=== PATIENT | female | born 1955 | race Caucasian/White ===

== ENCOUNTER 2016-12-13 22:42 | Emergency (ER) | payer OTHER ==
[2016-12-13 22:49] VITALS: BP 174/80
[2016-12-13] MEDS ORDERED: METHYLPREDNISOLONE SOD SUCC/PF 125 MG/2 ML VIAL IM ONE (23:09)
--- NOTE | 2016-12-13 23:11 | ERNOTE ---
Date of Service: 12/13/16 Time Seen by Provider: 12/13/16 22:59 Stated Complaint: COLD Presenting Symptoms:: cough, sore throat, other - nasal congestion Source: patient Immunizations: IMMUNIZATION HX Immunizations Up to Date Yes History of Influenza Vaccine Yes Hx Pneumococcal Vaccination Yes Allergies/Adverse Reactions: Allergies Sulfa (Sulfonamide Antibiotics) Adverse Reaction (Verified 12/13/16 22:45) Home Medications: HOME MEDICATIONS Albuterol Sulfate [Ventolin Hfa] 1 puff IH Q6H 12/13/16 [Last Taken Unknown] Aspirin [Aspirin EC] 81 mg PO DAILY 12/13/16 [Last Taken Unknown] Atorvastatin Calcium [Lipitor] 40 mg PO HS 12/13/16 [Last Taken Unknown] Cholecalciferol (Vitamin D3) [Vitamin D3] 1,000 unit PO DAILY 12/13/16 [Last Taken Unknown] Citalopram Hydrobromide [Citalopram HBr] 40 mg PO DAILY 12/13/16 [Last Taken Unknown] Lisinopril [Prinivil] 10 mg PO BID 12/13/16 [Last Taken Unknown] Montelukast Sodium [Singulair] 10 mg PO DAILY 12/13/16 [Last Taken Unknown] metFORMIN HCL [Glucophage Xr] 500 mg PO DAILY 12/13/16 [Last Taken Unknown] - History of Present Ilness Narrative: This is a 61-year-old female who comes to the emergency department complaining of a stuffy nose as well as a sore throat which has been going on since . Symptoms seem to be gradually worsening. The patient came in this evening. She is not sure if she is going be able to go to work on Wednesday. She was hoping that she could get a shot of antibiotics and feel better in the morning. The patient says that she has started lose her voice today. She denies fever. She denies chest pain. She denies shortness of breath. She says she has to clear her throat frequently because it feels like something is caught in her throat. She is frustrated that her voice is going in and out. She is concerned that she might be contagious. The patient has no GI or complaints no rashes no sick contacts Review of Systems - Review of Systems Constitutional: Present: malaise EYE: Present: no symptoms reported ENT: Present: See HPI, ear pain, nose congestion, other Respiratory: Present: cough Cardiology: Present: no symptoms reported - sore throat Gastrointestinal/Abdominal: Present: no symptoms reported Genitourinary: Present: no symptoms reported Musculoskeletal: Present: no symptoms reported Skin: Present: no symptoms reported Neurological: Present: no symptoms reported Endocrine: Present: no symptoms reported Hematologic/Lymphatic: Present: no symptoms reported Psych: Present: no symptoms reported All Other Systems: All systems neg except as marked - Patient's Past Medical History Patient History - Medical: Diabetes Type 2, Depression Patient History - Cardiac/Respiratory: Asthma, Hypertension, Hyperlipidemia Patient History - Cancer: No Hx of Cancer Patient History - Surgical Procedures: Tubal Ligation, Other Patient History - Other: None - Social History Living Situations: home Abuse History: No History of abuse Psych History: Hx of Depression Smoking Status: Never smoker Alcohol Use: none Drug Use: none - Immunizations Immunizations Up to Date: Yes Hx Pneumococcal Vaccination: Yes History of Influenza Vaccine: Yes Physical Exam - Physical Exam General Appearance: Present: wd/wn, alert, no apparent distress Head Exam: Present: normal inspection, no evidence of injury Eye Exam: Normal inspection: bilateral, PERRL: bilateral, EOMI: bilateral Ears, Nose, Throat: Present: normal ENT inspection, other - patient has very mild pharyngeal erythema. There is no tonsillar exudate or hypertrophy. Bilateral tympanic membranes are pearly tejeda and normal in appearance. She has a few small anterior cervical nodes. Neck: Present: normal inspection, nontender Respiratory: Present: no respiratory distress, normal breath sounds, no accessory muscle use, lungs clear Cardiovascular/Chest: Present: regular rate, rhythm, no murmur, normal peripheral pulses Gastrointestinal/Abdominal: Present: normal bowel sounds, nontender, nondistended, soft Back Exam: Present: normal inspection, normal range of motion, no vertebral tenderness Extremity Exam: Present: normal inspection, no edema Neurological Exam: Present: alert, oriented, normal mood/affect, no motor/ sensory deficits Skin Exam: Present: normal color, warm/dry Lymphatic Exam: Present: no adenopathy ED Progress - Vital Signs Patient's Vital Signs:: I have reviewed the patient's vital signs. Vital Signs: Vital Signs 12/13/16 22:45 Temperature 36.8 C Pulse Rate 82 Respiratory 18 Rate Blood Pressure 174/80 O2 Sat by Pulse 96 Oximetry - Progress/Reassessment Chief Complaint: Upper Respiratory Symptoms Departure - Departure Clinical Impression: Upper respiratory infection Disposition: Home self-care Condition: Stable Instructions: Upper Respiratory Infection, Adult, [id number] Additional Instructions: As we have discussed, your symptoms are very suspicious for a viral infection which I have started to see going around. There 2 forms which seem to predominate. The first form people lose her voice on the first or second day and rapidly regained her voice. This one typically lasts for 5-6 days. The second type is associated with a delayed loss of voice and the symptoms may present may be present for several weeks. There is no specific treatment to help her body fight this off. It is a viral infection and no antibiotics will help. He can try anything which she thinks will help with symptoms. I would recommend that you try Sudafed as well as Amy or Benadryl to help with the congestion and ear discomfort. Salt water gargles are okay. Get plenty of sleep and drink plenty of fluids. Deciding to go to work is going to be completely up to you. If he don't feel like he can go then you should not go. I've written a note for you to be off of work. The steroids I have given to you may start working in 12 hours. Feel a bit better. There is no guarantee to this. Return if you develop new or concerning symptoms. I'll up with her family doctor. Referrals: Omid Murray MD [Primary Care Provider] -
[2016-12-13] MEDS ORDERED: METHYLPREDNISOLONE SOD SUCC/PF 125 MG/2 ML VIAL ONE (23:12)
== END 2016-12-13 23:15 | disposition home or self-care (01) ==
LOC: ER 22:42
DX: J06.9 Acute upper respiratory infection, unspecified (principal); E11.9 Type 2 diabetes mellitus without complications; E78.5 Hyperlipidemia, unspecified; I10 Essential (primary) hypertension; J45.909 Unspecified asthma, uncomplicated

== ENCOUNTER 2017-12-16 13:19 | Inpatient (IN) | payer OTHER ==
[2017-12-16] MEDS: FUROSEMIDE 10 MG/ML VIAL IV SCH (16:12)
[2017-12-16] MEDS: ENOXAPARIN SODIUM 40 MG/0.4 ML SYRG SC SCH (16:12)
[2017-12-16 16:28] LABS: T4 Free * 1.09 ng/dL (0.76-1.46); TSH * 0.823 uIU/mL (0.358-3.74)
--- NOTE | 2017-12-16 20:22 | HP ---
Chief Complaint - Chief Complaint Date of Service: 12/16/17 Time of Service: 16:20 Chief Complaint: Shortness of breath History of Present Illness: The patient complains of shortness of breath that started 2 weeks ago and has progressively worsened. She states she will become winded and quite short of breath walking short distances or doing normal activities that she used to never have any issues doing before 2 weeks ago. She denies any specific trigger or anything out of her normal usual day to day activities that occurred around the time she first noticed she was short of breath 2 weeks ago. She states she feels like she has stuff to cough up but she is unable to get anything up. She denies any other symptoms other than the cough and shortness of breath and feeling a bit bloated and sore in her upper mid abdomen which is possible related to muscle soreness from cough. She denies any nausea or vomiting, denies any abdominal pain, denies any significant change in BMs - no diarrhea and no constipation. She denies any fevers or chills. She denies any chest pain or LE edema. She does states she has probably gained about 10 pounds over the past month and a half but she figured it was just diet related. She denies any recent increase in salt intake. She states she thought she was getting an asthma flare which she does get seasonally in the Spring and the Fall. She was seen in the ED on 12/14/2017 and was diagnosed with an asthma exacerbation and was given steroids while in the ED and then discharged home on nebs, azithromycin and prednisone. She continued to feel short of breath so she called my office today and she was seen this AM around 10:30. At that time, she was visibly short of breath and had conversational dyspnea. Her oxygen saturations were on the lower end at 93% and she has no known underlying cardiac issues. She does have ABEBE but is 100% compliant with using her CPAP. She has asthma that sometimes flares seasonally but is usually fairly well controlled as she has only been on albuterol inhaler and nebs PRN. On exam in the clinic, there were no crackles or rhonchi. Her lung sounds were diminished bases>apices. The patient did NOT have any audible wheezes. Her clinically picture just did not completely fit with an asthma exacerbation so bloodwork was ordered including a procalcitonin which was unremarkable, CBC which showed at elevated WBC but the patient is on steroids so it is possible the bump is caused by the steroids and d-dimer markedly elevated so a CTA of the chest was ordered for further evaluation. The CT showed the patient has bilateral left> right pleural effusions with cardiomegaly and overall picture consisted with acute CHF and there was no evidence of PE. The patient has no history of CHF. Of note, when the patient was in the ED 2 days ago (12/14/17), she had a CXR completed which showed trace if any evidence of pleural effusions. The patient will be admitted for further evaluation and management of her new onset CHF and bilateral pleural effusions. Medical History (Last Reviewed 12/16/17 @ 11:27 by Apolonia Stinson) Asthma (Chronic) ADHD (Chronic) Rhinitis, allergic (Chronic) HTN (hypertension) (Chronic) Diabetes (Chronic) Surgical History: Surgical History (Last Reviewed 12/14/17 @ 09:39 by Alyx Sommers RN) Cataract H/O tubal ligation Retinal tear of both eyes S/P cervical disc replacement Family History: Family History (Last Reviewed 12/14/17 @ 09:39 by Alyx Sommers RN) Sister Cancer Father Heart disease Social History: Patient Lives/Resources With Spouse Utilized Occupation Internist Medical Doctor Md for [employer] Preferred Language Irish Do you have any mu-ism or No cultural preference? Smoking Status Never smoker Have you smoked in the past 12 No months Abuse History No History of abuse Psych History Hx of Depression Review Of Systems (GEN) - Review of Systems Generalized/Overall Review: Present: Weight gain. Absent: Chills, Fever, Diaphoresis EENTM: Present: No Symptoms Reported Respiratory: Present: Cough, Shortness of Breath Cardiac: Absent: Chest Pain, Edema, Palpitations, Syncope Abdominal: Absent: Nausea, Vomiting, Abdominal Pain, Constipation, Diarrhea Genitourinary: Present: No Symptoms Reported Musculoskeletal: Present: No Symptoms Reported Neurological: Absent: Headache Skin: Present: No Symptoms Reported Endocrine: Present: No Symptoms Reported Misc: All systems neg except as marked Immunizations: IMMUNIZATION HX Immunizations Up to Date Yes History of Influenza Vaccine Yes Hx Pneumococcal Vaccination Yes Allergies/Adverse Reactions: Allergies Allergy/AdvReac Type Severity Reaction Status Date / Time Sulfa (Sulfonamide AdvReac Hives Verified 12/16/17 11:26 Antibiotics) Home Medications: HOME MEDICATIONS Aspirin [Aspirin EC] 81 mg PO DAILY 12/13/16 [Last Taken 12/16/17] Atorvastatin Calcium [Lipitor] 40 mg PO HS 12/13/16 [Last Taken 12/15/17] Cholecalciferol (Vitamin D3) [Vitamin D3] 1,000 unit PO DAILY 12/13/16 [Last Taken 12/16/17] Citalopram Hydrobromide [Citalopram HBr] 40 mg PO DAILY 12/13/16 [Last Taken 09/27] Lisinopril [Prinivil] 10 mg PO BID 12/13/16 [Last Taken 12/16/17] Montelukast Sodium [Singulair] 10 mg PO DAILY 12/13/16 [Last Taken 12/16/17] metFORMIN HCL [Glucophage Xr] 500 mg PO DAILY 12/13/16 [Last Taken 12/16/17] albuterol sulfate HFA 90 mcg/actuation aerosol inhaler 1 puff IH Q6H #18 g 12/09 [Last Taken 12/16/17] dextroamphetamine-amphetamine ER 20 mg 24hr capsule,extend release 40 mg PO DAILY 30 Days #60 cap 12/10/17 [Last Taken 12/16/17] predniSONE [Deltasone] 20 mg PO BID #10 tab 12/14/17 [Last Taken 12/16/17 0900] albuterol sulfate 2.5 mg/3 mL (0.083 %) solution for nebulization 2.5 mg IH Q2H #180 ml 12/16/17 [Last Taken 12/16/17] azithromycin 500 mg tablet 500 mg PO DAILY 5 Days #5 tab 12/16/17 [Last Taken ] ipratropium-albuterol 0.5 mg-3 mg(2.5 mg base)/3 mL nebulization soln 3 ml IH Q4H #180 ml 12/16/17 [Last Taken 12/16/17] mometasone 110 mcg (30 doses) breath activated powder inhaler 2 inh IH BID #1 ea 12/16/17 [Last Taken 12/16/17] Exam - Exam Vital Signs: Vital Signs - Last Taken Temp 36.8 C 12/16/17 19:45 Pulse 78 12/16/17 19:45 Resp 18 12/16/17 19:45 BP 154/72 H 12/16/17 19:45 Pulse Ox 93 12/16/17 19:45 Constitutional: Present: Alert, Oriented x3, Cooperative, No distress, Looks Younger than stated age ENT Exam: Present: hearing grossly normal Eye Exam: bilateral eye: normal inspection, EOMI Respiratory: Present: other - Diminished lung sounds diffusely bases>apices, shallow breaths, conversational dyspnea. Absent: crackles, rales, rhonchi, stridor, wheezing Cardiovascular/Chest: Present: no edema, no murmur, other - normal rate, irregular rhythm Abdomen: Present: soft, nontender, nondistended. Absent: guarding, rigidity Extremity: Present: normal inspection, no pedal edema Skin Exam: Present: normal color, warm/dry Neurologic: Present: no motor/sensory deficits, alert, normal mood/affect, oriented x 3 Appearance: Present: appropriate appearance, appropriate insight, neat, no memory impairment Eye contact: Present: cooperative, good eye contact, normal speech Thoughts: Present: normal thought pattern, no apparent hallucination Diagnostic Studies: Laboratory Results Lipase 132 U/L (73-393) 12/16/17 Unknown TSH 0.823 uIU/mL (0.358-3.74) 12/16/17 Unknown Free T4 1.09 ng/dL (0.76-1.46) 12/16/17 Unknown Assessment/Plan - Narrative Narrative: It is unclear why the patient appears to be in acute CHF. She has no history of CHF and an uremarkable CXR with trace to no pleural effusions just 2 days ago. The patient denies any chest pain whatsoever and she has no visibly obvious edema. Admit patient to med-surg, inpatient status. EKG ordered. Monitor patient on telemetry. Check cardiac enzymes, TSH, free T3 and free T4, BNP. Complete 2D echocardiogram ordered. CXR in AM. We will plan to complete a diagnostic thoracentesis in the AM for further evaluation to help determine the cause of the new onset large bilateral pleural effusions. Supplemental oxygen with goal SpO2>92%. Give lasix 40mg IV. Monitor volume status closely. Strict I&Os. Daily standing weight. VTE ppx with Lovenox and SCDs. - Assessment/Plan (1) Acute CHF (congestive heart failure) Problem: Acute (2) Bilateral pleural effusion Problem: Acute (3) Elevated d-dimer Problem: Acute (4) Leukocytosis Problem: Acute (5) Asthma Problem: Chronic
[2017-12-16] MEDS ORDERED: ALBUTEROL SULFATE 2.5 MG/0.5 ML VIAL.NEB IH PRN (20:30)
[2017-12-16] MEDS ORDERED: ROSUVASTATIN CALCIUM 10 MG TABLET ONE (20:45)
[2017-12-16] MEDS: ASPIRIN 81 MG TABLET.DR PO SCH (20:59)
[2017-12-16] MEDS: MONTELUKAST SODIUM 10 MG TABLET PO SCH (20:59)
[2017-12-16] MEDS: LISINOPRIL 10 MG TABLET PO SCH (20:59)
[2017-12-16] MEDS: CITALOPRAM HYDROBROMIDE 20 MG TABLET PO SCH (21:01)
[2017-12-16] MEDS: ROSUVASTATIN CALCIUM 20 MG TABLET PO SCH (21:03)
[2017-12-16] MEDS: ALBUTEROL SULFATE/IPRATROPIUM 3 ML NEBU IH SCH ×2 (21:07→23:00)
[2017-12-16] MEDS: BUDESONIDE 0.5 MG/2 ML VIAL.NEB IH SCH (21:08)
[2017-12-17] MEDS: ALBUTEROL SULFATE/IPRATROPIUM 3 ML NEBU IH SCH ×7 (02:16→22:12)
[2017-12-17 05:19] LABS: Hematocrit 35.5 % (37.0-47.0); Hemoglobin 11.7 gm/dL (12.5-16.0); Mean Corpuscular Hemoglobin 29.3 pg (27-31); Mean Platelet Volume 9.3 fl (8-12.5); Neutrophil # 8.3 K/mm3 (1.3-6.0); Platelet Count 313 K/mm3 (150-450); Red Blood Count 3.99 M/mm3 (4.2-5.4); Red Cell Distribution Width 13.5 % (11.5-14.0); White Blood Count 12.2 K/mm3 (4.0-10.5)
[2017-12-17 05:27] LABS: Prothrombin Time (Patient) 10.6 Seconds (9.0-11.0)
[2017-12-17 05:30] LABS: INR 1.06 INR (0.90-1.10)
[2017-12-17 05:42] LABS: ALT 27 U/L (19-67); AST 19 U/L (0-48); Albumin * 3.2 gm/dl (3.4-5.0); Alkaline Phosphatase * 92 U/L (50-170); Anion Gap 11.2 mmol/L (6.8-13.8); BNP * 113 pg/mL (5-205); BUN/Creatinine Ratio 19.8 (9.0-21.6); Bilirubin Direct 0.1 mg/dL (0.0-0.3); Bilirubin, Total 0.3 mg/dL (0.0-1.1); Bilirubin,Indirect 0.2 mg/dL (0.1-0.7); Blood Urea Nitrogen 23 mg/dL (3-23); CK Total * 79 U/L (0-259); CKMB 0.5 ng/mL (0.0-9.0); Calcium * 9.2 mg/dL (7.9-10.9); Carbon Dioxide 28.4 mmol/L (24-32.6); Chloride 103 mmol/L (97-106); Chol/HDL Risk Ratio 2.9 mg/dL (3.3-4.4); Cholesterol 156 mg/dL (0-200); Glucose * 102 mg/dL (70-110); HDL Cholesterol 53 mg/dL (40-60); LDL Cholesterol 74 mg/dL (70-130); Potassium 3.6 mmol/L (3.4-4.6); Sodium 139 mmol/L (132-142); Total Protein 7.3 gm/dL (6.2-8.2); Triglycerides 144 mg/dL (30-200); Troponin I Less than 0.017 ng/mL (0.00-0.10); VLDL Cholesterol 29 mg/dL (5-40)
[2017-12-17] MEDS: BUDESONIDE 0.5 MG/2 ML VIAL.NEB IH SCH ×3 (06:07→18:16)
[2017-12-17] MEDS: LISINOPRIL 10 MG TABLET PO SCH ×2 (09:02→20:15)
[2017-12-17] MEDS: FUROSEMIDE 10 MG/ML VIAL IV SCH (10:18)
[2017-12-17] MEDS: DIATRIZOATE MEGLUMINE, SODIUM 30 ML BTL PO ONE ×2 (11:22→12:25)
[2017-12-17] MEDS: ENOXAPARIN SODIUM 40 MG/0.4 ML SYRG SC SCH (14:22)
[2017-12-17] MEDS: ACETAMINOPHEN 325 MG TABLET PO PRN (17:29)
[2017-12-17] MEDS: ASPIRIN 81 MG TABLET.DR PO SCH (20:14)
[2017-12-17] MEDS: ROSUVASTATIN CALCIUM 20 MG TABLET PO SCH (20:15)
[2017-12-17] MEDS: CITALOPRAM HYDROBROMIDE 20 MG TABLET PO SCH (20:15)
[2017-12-17] MEDS: MONTELUKAST SODIUM 10 MG TABLET PO SCH (20:15)
[2017-12-18] MEDS: ALBUTEROL SULFATE/IPRATROPIUM 3 ML NEBU IH SCH ×2 (02:08→06:05)
[2017-12-18] MEDS: BUDESONIDE 0.5 MG/2 ML VIAL.NEB IH SCH ×2 (06:05→18:04)
[2017-12-18] MEDS: LISINOPRIL 10 MG TABLET PO SCH ×2 (08:58→20:07)
[2017-12-18] MEDS ORDERED: FUROSEMIDE 10 MG/ML VIAL IV ONE (09:56)
[2017-12-18] MEDS ORDERED: ALBUTEROL SULFATE/IPRATROPIUM 3 ML NEBU IH PRN (10:02)
[2017-12-18] MEDS: ACETAMINOPHEN 325 MG TABLET PO PRN (11:44)
[2017-12-18 12:12] LABS: Albumin * 2.8 gm/dl (3.4-5.0); Total Protein 5.5 gm/dL (6.2-8.2)
[2017-12-18 12:18] LABS: Body Fluid WBC 762 /uL (0-1000)
[2017-12-18 12:46] LABS: Body Fluid Appearance SLIGHTLY CLOUDY (CLEAR); Body Fluid Color YELLOW (COLORLESS)
[2017-12-18] MEDS: ENOXAPARIN SODIUM 40 MG/0.4 ML SYRG SC SCH (15:24)
[2017-12-18] MEDS: CITALOPRAM HYDROBROMIDE 20 MG TABLET PO SCH (20:05)
[2017-12-18] MEDS: MONTELUKAST SODIUM 10 MG TABLET PO SCH (20:05)
[2017-12-18] MEDS: ROSUVASTATIN CALCIUM 20 MG TABLET PO SCH (20:06)
[2017-12-18] MEDS: ASPIRIN 81 MG TABLET.DR PO SCH (20:06)
[2017-12-19] MEDS: BUDESONIDE 0.5 MG/2 ML VIAL.NEB IH SCH ×2 (06:05→18:16)
[2017-12-19] MEDS ORDERED: FUROSEMIDE 10 MG/ML VIAL IV ONE (08:41)
[2017-12-19] MEDS ORDERED: SPIRONOLACTONE 25 MG TABLET PO ONE (08:42)
[2017-12-19 08:49] LABS: Hematocrit 40.1 % (37.0-47.0); Hemoglobin 13.2 gm/dL (12.5-16.0); Mean Cell Volume 88.7 fl (78-100); Mean Corpuscular Hemoglobin 29.2 pg (27-31); Mean Corpuscular Hgb Conc 32.9 g/dl (32-36); Mean Platelet Volume 9.2 fl (8-12.5); Platelet Count 372 K/mm3 (150-450); Red Blood Count 4.52 M/mm3 (4.2-5.4); Red Cell Distribution Width 13.4 % (11.5-14.0); White Blood Count 12.8 K/mm3 (4.0-10.5)
[2017-12-19 08:53] LABS: Anion Gap 13.5 mmol/L (6.8-13.8); BUN/Creatinine Ratio 21.4 (9.0-21.6); Calcium * 8.7 mg/dL (7.9-10.9); Carbon Dioxide 25.1 mmol/L (24-32.6); Estimated Creat Clear 43.6; Potassium 3.6 mmol/L (3.4-4.6)
[2017-12-19] MEDS: ACETAMINOPHEN 325 MG TABLET PO PRN ×2 (09:39→18:49)
[2017-12-19] MEDS: LISINOPRIL 10 MG TABLET PO SCH ×2 (09:41→20:22)
[2017-12-19] MEDS: ENOXAPARIN SODIUM 40 MG/0.4 ML SYRG SC SCH (15:13)
[2017-12-19] MEDS: ROSUVASTATIN CALCIUM 20 MG TABLET PO SCH (20:21)
[2017-12-19] MEDS: CITALOPRAM HYDROBROMIDE 20 MG TABLET PO SCH (20:21)
[2017-12-19] MEDS: MONTELUKAST SODIUM 10 MG TABLET PO SCH (20:22)
[2017-12-19] MEDS: ASPIRIN 81 MG TABLET.DR PO SCH (20:22)
[2017-12-20] MEDS: BUDESONIDE 0.5 MG/2 ML VIAL.NEB IH SCH (06:09)
[2017-12-20] MEDS: LISINOPRIL 10 MG TABLET PO SCH (08:12)
--- NOTE | 2017-12-20 09:58 | DS ---
(1) Acute CHF (congestive heart failure) Problem: Ruled-out (2) Bilateral pleural effusion Problem: Acute (3) Elevated d-dimer Problem: Acute (4) Leukocytosis Problem: Acute (5) Asthma Problem: Chronic (6) Carcinomatosis Problem: Suspected (7) Ascites Problem: Acute (8) Colonic mass Problem: Acute Description of Stay: ADMISSION DATE: 12/16/2017 DISCHARGE DATE: 12/20/2017 ADMISSION HPI: The patient complains of shortness of breath that started 2 weeks ago and has progressively worsened. She states she will become winded and quite short of breath walking short distances or doing normal activities that she used to never have any issues doing before 2 weeks ago. She denies any specific trigger or anything out of her normal usual day to day activities that occurred around the time she first noticed she was short of breath 2 weeks ago. She states she feels like she has stuff to cough up but she is unable to get anything up. She denies any other symptoms other than the cough and shortness of breath and feeling a bit bloated and sore in her upper mid abdomen which is possible related to muscle soreness from cough. She denies any nausea or vomiting, denies any abdominal pain, denies any significant change in BMs - no diarrhea and no constipation. She denies any fevers or chills. She denies any chest pain or LE edema. She does states she has probably gained about 10 pounds over the past month and a half but she figured it was just diet related. She denies any recent increase in salt intake. She states she thought she was getting an asthma flare which she does get seasonally in the Spring and the Fall. She was seen in the ED on 12/14/2017 and was diagnosed with an asthma exacerbation and was given steroids while in the ED and then discharged home on nebs, azithromycin and prednisone. She continued to feel short of breath so she called my office today and she was seen this AM around 10:30. At that time, she was visibly short of breath and had conversational dyspnea. Her oxygen saturations were on the lower end at 93% and she has no known underlying cardiac issues. She does have ABEBE but is 100% compliant with using her CPAP. She has asthma that sometimes flares seasonally but is usually fairly well controlled as she has only been on albuterol inhaler and nebs PRN. On exam in the clinic, there were no crackles or rhonchi. Her lung sounds were diminished bases>apices. The patient did NOT have any audible wheezes. Her clinically picture just did not completely fit with an asthma exacerbation so bloodwork was ordered including a procalcitonin which was unremarkable, CBC which showed at elevated WBC but the patient is on steroids so it is possible the bump is caused by the steroids and d-dimer markedly elevated so a CTA of the chest was ordered for further evaluation. The CT showed the patient has bilateral left> right pleural effusions with cardiomegaly and overall picture consisted with acute CHF and there was no evidence of PE. The patient has no history of CHF. Of note, when the patient was in the ED 2 days ago (12/14/17), she had a CXR completed which showed trace if any evidence of pleural effusions. The patient will be admitted for further evaluation and management of her new onset CHF and bilateral pleural effusions. HOSPITAL COURSE: The patient was admitted with what appeared to be acute onset CHF on imaging but this diagnosis did not completely fit the patients presentation as the patient does not have any lower extremity edema on exam and her laboratory values do not completely fit with the diagnosis of CHF either. She had an echocardiogram completed the following morning after admission and during the exam, the tech noted the patient had ascites. Given this new finding of ascites , I was concerned that the patient's new onset pleural effusions were malignant in etiology and possibly secondary to an intra-abdominal source. A CT of the abdomen and pelvis with IV and oral contrast was completed and showed a possible lesion/neoplasm in the transverse colon as well as nodularity of the greater omentum and transverse mesocolon possibly representing peritoneal metastases. This information markedly raised my concern for an intra-abdominal malignant process causing the ascites and pleural effusions. The patient underwent a diagnostic paracentesis during her admission and the ascitic fluid was sent for fluid analysis including cytology. Ascitic fluid analysis revealed SAAG is <1.1 so the patient's ascites is NOT secondary to portal hypertension. Fluid analysis was also not consistent with infection. Given all the possible etiologies of non-portal hypertension related ascites, the patient's presentation and imaging is most consistent with peritoneal carcinomatosis of unknown primary. Cytology results were pending at the time of discharge. Of note, the patient has never been a smoker and has no significant alcohol use. She is up to date on her mammogram and she states she is only 1 year late on her colonoscopy. She had a colonoscopy for screening when she turned 51 and has not had another since that time. She states the colonoscopy 11 years ago was fine, there were no polyps and she was told everything looked normal and to repeat a screening colonoscopy in 10 years. FOLLOW-UP APPOINTMENTS: -PET scan on , 12/23/2017. [facility] scheduling will call you with time. -Follow-up with Dr. Collier on 12/24/2017 @ 0845 AM -Check BMP at follow-up visit NEW OR CHANGED MEDICATIONS: -Lasix 40mg PO daily -Spironolactone 25mg PO daily DISCONTINUED MEDICATIONS: -None RADIOLOGY REPORTS: CTA of the chest on 12/16/2017: 1. No evidence for pulmonary embolism. 2. Large bilateral pleural effusions with evidence of acute CHF exacerbation. PA and lateral CXR on 12/17/2017: Increasing size of a moderate left-sided pleural effusion with associated compressive atelectasis. CT abdomen and pelvis with IV and oral contrast on 12/17/2017: 1. Nonspecific mild to moderate ascites as discussed above. 2. Possible area of linear stranding and nodularity of the greater omentum and the transverse mesocolon. Consider potential peritoneal metastases. 3. Possible nonobstructing transverse colonic lesion. Consider neoplasm. 4. Fatty liver. 5. Nonspecific small bowel mesenteric vascular congestion. Procedures Performed: see notes below List Procedures: DATE AND TIME OF PROCEDURE: 12/18/2017 @ 1105 PRE-PROCEDURE DIAGNOSIS: Ascites POST-PROCEDURE DIAGNOSIS: Same PROCEDURE: Ultrasound-guided Diagnostic Paracentesis PERFORMING PHYSICIAN: Cris Collier DO MEDICATIONS: 3cc 1% Lidocaine PROCEDURE: Consent was obtained prior to the procedure. Ultrasound guidance was used to locate and gabriel an ascitic pocket on the left. A timeout was performed prior to initiating the procedure. The area was prepared and draped in the usual sterile fashion. The site was anesthetized with 3cc of 1% lidocaine. A standard paracentesis kit needle was introduced into the peritoneal cavity and 15cc of bloody fluid (resembled grapefruit juice) was removed and sent for analysis. The patient tolerated the procedure well without any immediately apparent difficulties or complications. COMPLICATIONS: None BLOOD LOSS: Minimal FLUID ANALYSIS: Cytology, gram stain and culture, cell count, total protein, albumin, CEA Results and Findings: Lab Pending Results 12/16/17 15:31: Free T3 2.5 12/16/17 : Lipase 132, TSH 0.823, Free T4 1.09 12/17/17 05:17: WBC 12.2 H D, RBC 3.99 L, Hgb 11.7 L, Hct 35.5 L, MCV 89.0, MCH 29.3, MCHC 33.0, RDW 13.5, Plt Count 313, MPV 9.3, Immature Gran % (Auto) 0.60 H , Immature Gran # (Auto) 0.07 H, Neutrophils % 68.0, Lymphocytes % 23.0, Monocytes % 7.7, Eosinophils % 0.2, Basophils % 0.5, Nucleated RBC % 0.0, Neutrophils # 8.3 H, Lymphocytes # 2.80, Monocytes # 0.9, Eosinophils # 0.0, Absolute Basophils 0.1 12/17/17 05:17: PT 10.6, INR (Anticoag Therapy) 1.06 12/17/17 05:17: Sodium 139, Plasma Sodium 139, Potassium 3.6, Chloride 103, Carbon Dioxide 28.4, Anion Gap 11.2, BUN 23, Creatinine 1.16, Est GFR (Non-Af Amer) 50 L, BUN/Creatinine Ratio 19.8, Random Glucose 102, Calcium 9.2, Total Bilirubin 0.3, Direct Bilirubin 0.1, Indirect Bilirubin 0.2, AST 19, ALT 27, Alkaline Phosphatase 92, Creatine Kinase 79, CK-MB (CK-2) 0.5, CK-MB (CK-2) Rel Index 0.6, Troponin I Less than 0.017, B-Natriuretic Peptide 113, Total Protein 7.3, Albumin 3.2 L, Triglycerides 144, Cholesterol 156, LDL Cholesterol 74, VLDL Cholesterol 29, HDL Cholesterol 53, Cholesterol/HDL Ratio 2.9 L 12/18/17 11:25: Total Protein 5.5 L, Albumin 2.8 L 12/18/17 11:25: Fluid Color Yellow, Fluid Appearance Slightly cloudy, Fluid WBC 762, Fluid RBC Greater than 1000.0 H, Fluid Neutrophils 10, Fluid Lymphocytes 85 , Fluid Monocytes 2, Fluid Other Cells 3 12/18/17 11:25: Miscellaneous Cytology Spec. sent to path. 12/18/17 11:58: Albumin 3.1 L 12/19/17 08:42: WBC 12.8 H, RBC 4.52, Hgb 13.2, Hct 40.1, MCV 88.7, MCH 29.2, MCHC 32.9, RDW 13.4, Plt Count 372, MPV 9.2 12/19/17 08:42: Sodium 135, Plasma Sodium 136, Potassium 3.6, Chloride 100, Carbon Dioxide 25.1, Anion Gap 13.5, BUN 25 H, Creatinine 1.17, Est GFR (Non-Af Amer) 50 L, BUN/Creatinine Ratio 21.4, Random Glucose 150 H D, Calcium 8.7 Discharge Location: Home Disposition: Home self-care Condition: Stable Discharge Activity: Activity as tolerated Discharge Diet: Low salt Referrals: Cris Collier DO [Primary Care Provider] - Problem Oriented Discharge Instructions to Patient/Family: Heart Failure, Easy- to-Read Additional Patient Instructions (free text): -PET scan on , 12/23/2017 [facility] scheduling will call you with time. -Follow-up with Dr. Collier on 12/24/2017 @ 0845 AM -Check BMP at follow-up visit Prescriptions (Any new or edited meds): Furosemide [Lasix] 40 mg PO DAILY #30 tab Spironolactone 25 mg PO DAILY #30 tab Complete Home Medications List: Complete Home Medication List: Aspirin [Aspirin EC] 81 mg PO DAILY 12/13/16 Atorvastatin Calcium [Lipitor] 40 mg PO HS 12/13/16 Cholecalciferol (Vitamin D3) [Vitamin D3] 1,000 unit PO DAILY 12/13/16 Citalopram Hydrobromide [Citalopram HBr] 40 mg PO DAILY 12/13/16 Lisinopril [Prinivil] 10 mg PO BID 12/13/16 Montelukast Sodium [Singulair] 10 mg PO DAILY 12/13/16 metFORMIN HCL [Glucophage Xr] 500 mg PO DAILY 12/13/16 albuterol sulfate HFA 90 mcg/actuation aerosol inhaler 1 puff IH Q6H #18 g 12/09 dextroamphetamine-amphetamine ER 20 mg 24hr capsule,extend release 40 mg PO DAILY 30 Days #60 cap 08/31/18 albuterol sulfate 2.5 mg/3 mL (0.083 %) solution for nebulization 2.5 mg IH Q2H #180 ml 12/16/17 ipratropium-albuterol 0.5 mg-3 mg(2.5 mg base)/3 mL nebulization soln 3 ml IH Q4H #180 ml 12/16/17 mometasone 110 mcg (30 doses) breath activated powder inhaler 2 inh IH BID #1 ea 12/16/17 Furosemide [Lasix] 40 mg PO DAILY #30 tab 12/20/17 Spironolactone 25 mg PO DAILY #30 tab 12/20/17 Amb Orders for Discharge: Basic Metabolic Panel Time Frame: 12/24/17, Location: Laboratory PET/CT Wholebody Time Frame: 12/23/17, Location: Radiology
[2017-12-20 10:52] VITALS: BP 133/91
--- NOTE | 2017-12-20 13:46 | ECHO ---
This report is available in the EMR
--- NOTE | 2017-12-20 14:39 | PROC NOTE ---
ED Procedures - Additional Procedures Progress: DATE AND TIME OF PROCEDURE: 12/18/2017 @ 1105 PRE-PROCEDURE DIAGNOSIS: Ascites POST-PROCEDURE DIAGNOSIS: Same PROCEDURE: Ultrasound-guided Diagnostic Paracentesis PERFORMING PHYSICIAN: Cris Collier DO MEDICATIONS: 3cc 1% Lidocaine PROCEDURE: Consent was obtained prior to the procedure. Ultrasound guidance was used to locate and gabriel an ascitic pocket on the left. A timeout was performed prior to initiating the procedure. The area was prepared and draped in the usual sterile fashion. The site was anesthetized with 3cc of 1% lidocaine. A standard paracentesis kit needle was introduced into the peritoneal cavity and 15cc of bloody fluid (resembled grapefruit juice) was removed and sent for analysis. The patient tolerated the procedure well without any immediately apparent difficulties or complications. COMPLICATIONS: None BLOOD LOSS: Minimal FLUID ANALYSIS: Cytology, gram stain and culture, cell count, total protein, albumin, CEA
--- NOTE | 2017-12-20 14:52 | PN ---
Subjective - Date and Time Seen Date: 12/17/17 Time: 10:45 Subjective Narrative: Patient seen and examined at bedside. No acute issues overnight. Patient continues to be short of breath but otherwise denies any new issues or concerns. Objective - Review of Systems Respiratory: Reports: Shortness of Breath Misc: All systems neg except as marked - Vitals Vitals: Last Vital Signs Temp 36.7 C 12/20/17 10:50 Pulse 87 12/20/17 10:50 Resp 20 12/20/17 10:50 BP 133/91 H 12/20/17 10:50 Pulse Ox 93 12/20/17 10:50 - Exam Constitutional: Present: Alert, Oriented x3, Cooperative, Well developed, Well nourished, No distress, Looks Younger than stated age ENT Exam: Present: hearing grossly normal, moist mucous membranes Respiratory: Present: no respiratory distress - while sitting, no accessory muscle use, other - Diminished to absent lung sounds at the bases bilaterally left>right Cardiovascular/Chest: Present: regular rate, rhythm, no edema, no murmur Abdomen: Present: soft, nontender, hypoactive. Absent: guarding, rigidity, rebound tenderness Extremity: Present: normal range of motion, normal inspection, no pedal edema Skin Exam: Present: normal color, warm/dry Neurologic: Present: no motor/sensory deficits, alert, normal mood/affect, oriented x 3 Appearance: Present: appropriate appearance, appropriate insight, neat, no memory impairment Eye contact: Present: cooperative, good eye contact, normal speech Thoughts: Present: normal thought pattern Assessment/Plan Plan Narrative: Patient admitted with what appeared to be acute onset CHF on imaging but this diagnosis did not completely fit as the patient does not have any lower extremity edema on exam and her laboratory values do not completely fit with the diagnosis of CHF either. Echocardiogram completed this AM. The echo has not been read and there is not a formal report yet but I spoke with the i&c technician who just wanted to make sure I knew that she saw ascites while she was completing the echo. Patient has no known history of ascites. Given this new information, I am concerned that the patient's new onset pleural effusions are malignant in etiology and possibly secondary to an intra-abdominal source. CT of the abdomen and pelvis with IV and oral contrast ordered for further evaluation. Further recommendations pending final report of echo and findings on CT scan. Of note, the patient has never been a smoker and has no significant alcohol use. She is up to date on her mammogram and she states she is only 1 year late on her colonoscopy. She had a colonoscopy for screening when she turned 51 and has not had another since that time. She states the colonoscopy 11 years ago was fine, there were no polyps and she was told everything looked normal and to repeat a screening colonoscopy in 10 years. - Problems/Diagnosis (1) Ascites Problem: Acute (2) Acute CHF (congestive heart failure) Problem: Acute (3) Bilateral pleural effusion Problem: Acute (4) Elevated d-dimer Problem: Acute (5) Leukocytosis Problem: Acute (6) Asthma Problem: Chronic
--- NOTE | 2017-12-20 15:05 | PN ---
Subjective - Date and Time Seen Date: 12/18/17 Time: 10:00 Subjective Narrative: Patient seen and examined at bedside. No acute issues overnight. Patient continues to be short of breath but otherwise denies any new issues or concerns. She states she gets very short of breath while doing activities that should be easy like walking to the bathroom and back or showering. Objective - Review of Systems Respiratory: Reports: Shortness of Breath, Other - dyspnea on exertion Misc: All systems neg except as marked - Vitals Vitals: Last Vital Signs Temp 36.7 C 12/20/17 10:50 Pulse 87 12/20/17 10:50 Resp 20 12/20/17 10:50 BP 133/91 H 12/20/17 10:50 Pulse Ox 93 12/20/17 10:50 - Exam Constitutional: Present: Alert, Oriented x3, Cooperative, Well developed, Well nourished, No distress, Looks Younger than stated age ENT Exam: Present: hearing grossly normal, moist mucous membranes Respiratory: Present: no respiratory distress, no accessory muscle use, other - conversational dyspnea noted, diminished to absent lung sounds at the bases bilaterally left>right Cardiovascular/Chest: Present: regular rate, rhythm, no edema, no murmur Abdomen: Present: Normal bowel sounds, soft, nontender. Absent: guarding, rigidity, rebound tenderness, CVA tenderness Extremity: Present: normal range of motion, normal inspection, no pedal edema Skin Exam: Present: normal color, warm/dry Neurologic: Present: no motor/sensory deficits, alert, normal mood/affect, oriented x 3 Appearance: Present: appropriate appearance, appropriate insight, neat, no memory impairment Eye contact: Present: cooperative, good eye contact, normal speech Thoughts: Present: normal thought pattern, no apparent hallucination Assessment/Plan Plan Narrative: CT scan of the abdomen and pelvis completed yesterday shows a possible lesion/ neoplasm in the transverse colon as well as nodularity of the greater omentum and transverse mesocolon possibly representing peritoneal metastases. This information markedly raises my concern for an intra-abdominal malignant process causing the ascites and pleural effusions. Patient is agreeable so we will proceed with an ultrasound guided diagnostic paracentesis for further evaluation. Ascitic fluid will be sent for fluid analysis including cytology. - Problems/Diagnosis (1) Carcinomatosis Problem: Suspected (2) Colonic mass Problem: Acute (3) Ascites Problem: Acute (4) Bilateral pleural effusion Problem: Acute (5) Acute CHF (congestive heart failure) Problem: Ruled-out (6) Elevated d-dimer Problem: Acute (7) Leukocytosis Problem: Acute (8) Asthma Problem: Chronic
--- NOTE | 2017-12-20 15:18 | PN ---
Subjective - Date and Time Seen Date: 12/19/17 Time: 08:20 Subjective Narrative: Patient seen and examined at bedside. No acute issues overnight. Patient denies any significant pain related to the paracentesis yesterday. She has just gotten out of the shower and back in bed at the time of my exam today and she is quite noticeably short of breath and is unable to speak in complete sentences secondary to her shortness of breath. Objective - Review of Systems Respiratory: Reports: Shortness of Breath Misc: All systems neg except as marked - Vitals Vitals: Last Vital Signs Temp 36.7 C 12/20/17 10:50 Pulse 87 12/20/17 10:50 Resp 20 12/20/17 10:50 BP 133/91 H 12/20/17 10:50 Pulse Ox 93 12/20/17 10:50 - Exam Constitutional: Present: Alert, Oriented x3, Cooperative, Well developed, Well nourished, Acute distress - dyspnea ENT Exam: Present: hearing grossly normal, moist mucous membranes Respiratory: Present: other - easily apparent dyspnea with conversational dyspnea and inability to speak in complete sentences, lung sounds diminished to absent at the bases bilaterally left>right Cardiovascular/Chest: Present: regular rate, rhythm, no edema, no murmur Abdomen: Present: soft, nontender, nondistended, hypoactive. Absent: guarding, rigidity, rebound tenderness, CVA tenderness Extremity: Present: normal range of motion, normal inspection, no pedal edema Skin Exam: Present: normal color, warm/dry Neurologic: Present: no motor/sensory deficits, alert, normal mood/affect, oriented x 3 Appearance: Present: appropriate appearance, appropriate insight, neat, no memory impairment Eye contact: Present: cooperative, good eye contact, normal speech Thoughts: Present: normal thought pattern, no apparent hallucination Assessment/Plan Plan Narrative: Patient is s/p diagnostic paracentesis on 12/19/2017. SAAG is <1.1 so the patient's ascites is NOT secondary to portal hypertension. Fluid analysis not consistent with infection. Given all the possible etiologies of non-portal hypertension related ascites, the patient's presentation and imaging is most consistent with peritoneal carcinomatosis of unknown primary. Cytology results will not be available for a couple days but hopefully cytology will give us an answer as to the source. Patient quite short of breath just after showering and with minimal ambulation. The patient has stairs she has to climb in her home and she states her bathroom and bedroom are both on the 2nd floor. Due to the patient's dyspnea, we will keep the patient another day while trying to optimize her fluid status. Give IV lasix 40mg and spironolactone 25mg PO. Monitor I&Os. Plan is for discharge home tomorrow as long as the patient's SOB and PINA has improved. - Problems/Diagnosis (1) Carcinomatosis Problem: Suspected (2) Colonic mass Problem: Acute (3) Ascites Problem: Acute (4) Bilateral pleural effusion Problem: Acute (5) Acute CHF (congestive heart failure) Problem: Ruled-out (6) Elevated d-dimer Problem: Acute (7) Leukocytosis Problem: Acute (8) Asthma Problem: Chronic
== END 2017-12-20 11:09 | disposition home or self-care (01) | DRG 844 ==
LOC: RAD 13:19 → MS 14:54
PROVIDERS: ADMIT Internal Medicine; ATTEND Internal Medicine
DX: J90 Pleural effusion, not elsewhere classified; J45.909 Unspecified asthma, uncomplicated; G47.33 Obstructive sleep apnea (adult) (pediatric); K76.0 Fatty (change of) liver, not elsewhere classified; I11.9 Hypertensive heart disease without heart failure; K63.9 Disease of intestine, unspecified; D72.829 Elevated white blood cell count, unspecified; E11.9 Type 2 diabetes mellitus without complications; Z88.2 Allergy status to sulfonamides; Z80.9 Family history of malignant neoplasm, unspecified; C80.0 Disseminated malignant neoplasm, unspecified; Z79.82 Long term (current) use of aspirin; Z82.49 Family history of ischemic heart disease and other diseases of the circulatory system; R18.8 Other ascites; Z79.84 Long term (current) use of oral hypoglycemic drugs; Z79.52 Long term (current) use of systemic steroids; K63.89 Other specified diseases of intestine; F90.9 Attention-deficit hyperactivity disorder, unspecified type
CPT/HCPCS: 36415; 71020; 71046; 71275; 74177; 80048; 80061; 80076; 82040; 82378; 82550; 82553; 83519; 83690; 83880; 84155; 84439; 84443; 84481; 84484; 85025; 85027; 85610; 87070; 88108; 88305; 88341; 88342; 89051; 93005; 93306; 94640; 94660; 94664